=== PATIENT | male | born 1960 | race Caucasian/White ===

== ENCOUNTER 2018-05-31 03:24 | Observation (INO) | payer BC ==
[~2018-05-31] VITALS: Ht 167.6 cm; Wt 88.6 kg
[~2018-05-31 03:24] MED LIST: ATOR10 PO; Flomax0.4 MG PO; KETO10 PO; LANS30EC PO; NAPR220 PO; Percocet 5-3251 EACH PO; Zofran Odt8 MG SL
[2018-05-31 03:45] LABS: BASOPHILS ABSOLUTE AUTO 0.06 K/mm3 (0.00-0.23); BASOPHILS PERCENT AUTO 1 % (0-2); EOSINOPHILS ABSOLUTE AUTO 0.15 K/mm3 (0.00-0.68); EOSINOPHILS PERCENT AUTO 2 % (0-6); Hematocrit 46.9 % (37.0-53.0); Hemoglobin 15.7 g/dL (13.5-17.5); IMMATURE GRAN ABSOLUTE AUTO 0.02 K/mm3 (0.00-0.10); IMMATURE GRAN PERCENT AUTO 0 % (0-1); LYMPHOCYTES ABSOLUTE AUTO 3.35 K/mm3 (0.84-5.20); LYMPHOCYTES PERCENT AUTO 41 % (21-46); MONOCYTES ABSOLUTE AUTO 0.78 K/mm3 (0.16-1.47); MONOCYTES PERCENT AUTO 10 % (4-13); Mean Corpuscular HGB 30.8 pg (26.0-34.0); Mean Corpuscular HGB Conc 33.5 g/dL (31.5-36.5); Mean Corpuscular Volume 92 fL (80-100); Mean Platelet Volume 9.8 fL (9.1-12.4); NEUTROPHILS ABSOLUTE AUTO 3.78 K/mm3 (1.96-9.15); NEUTROPHILS PERCENT AUTO 47 % (41-73); Platelet Count 223 K/mm3 (150-400); RDW Coefficient Variation 12.1 % (11.7-14.2); RDW Standard Deviation 41.2 fL (35.1-46.3); White Blood Cell Count 8.14 K/mm3 (4.00-11.30)
[2018-05-31 04:05] LABS: Alanine Aminotransfer (ALT/SGP 30 U/L (12-78); Albumin/Globulin Ratio 1.2 (0.8-1.8); Alk Phos 80 U/L (50-136); Anion Gap 7 mmol/L (6-16); Aspartate Aminotrans (AST/SGOT 11 U/L (12-37); Bilirubin, Total 0.5 mg/dL (0.1-1.0); Blood Urea Nitrogen 12 mg/dL (8-24); Bun/Creatinine Ratio 15.1 (12.0-20.0); CO2, Blood 28 mmol/L (21-32); Calcium, Blood 8.3 mg/dL (8.5-10.1); Chloride, Blood 105 mmol/L (98-108); Globulin, Blood 3.4 g/dL (2.2-4.0); Glomerular Filtration Rate >60 (60-); Glucose, Blood 88 mg/dL (70-99); Potassium, Blood 3.4 mmol/L (3.5-5.5); Sodium, Blood 140 mmol/L (136-145); Total Protein, Blood 7.4 g/dL (6.4-8.2); Troponin I <0.015 ng/mL (0.000-0.040)
[2018-05-31 05:08] LABS: CHOL/HDL RATIO 5.1; Cholesterol 228 mg/dL (50-200); HDL Cholesterol 45 mg/dL (>39); LDL/HDL RATIO 3.3; Low Density Lipoprotein Chol 147 mg/dL (0-110); Triglycerides 180 mg/dL (30-160); Very Low Density Lipoprot Chol 36 mg/dL (6-32)
--- NOTE | 2018-05-31 07:01 | NUR ---
PCU NOC SHIFT SUMMARY PATIENT ARRIVED TO UNIT VIA GURNEY AND AMBULATED TO UNIT BED. PATIENT DENIED ANY CHEST PAIN OR DISCOMFORT AT THIS TIME. VSS ON ROOM AIR. REPORTED OFF TO EDWARD REA.
--- NOTE | 2018-05-31 16:24 | NUR ---
SHIFT SUMMARY PT AHS HAD NO ACUTE CHANGES THIS SHIFT, NO COMPLAINTS OF ANY KIND, PT BEDRESTING AT THIS TIME, WILL CONT TO MONITOR UNTIL REPORT GIVEN TO THOMPSON RN.
--- NOTE | 2018-05-31 23:06 | NUR ---
PM NOTE. ASSUMED CARE OF PT APROX 1900, PT IS A&Ox4 AND IND IN THE ROOM. PT WAS ADMITTED DUE TO CHEST PAIN AND HYPERTENSION. PT HAS DENIED CHEST PAIN SINCE ARRIVAL TO THIS UNIT. PT HAS HAD THE FIRST PART OF HIS STRESS TEST TODAY AND IS SCHEUDLED FOR THE SECOND PART TOMORROW, HE IS ABLE TO EAT HIS BREAKFAST IN THE AM BUT IS TO BE NPO BY 0830, PT IS AWARE OF THIS AND IS AGREEABLE. TELE INTACT, NSR IN THE 50'S-60'S, THE LOWEST THE PT'S HR HAS GONE IS 56. PT'S BP 153/99, NO EDEMA NOTED ON ASSESSMENT. L/S CLEAR T/O, PT IS ON RA W/SATS >90%. BT PRESENT AND HYPERACTIVE, ABD IS SOFT AND NONTENDER TO PALP. CALL LIGHT IN REACH, BED IS LOCKED AND LOW WILL CONTINUE TO MONITOR.
--- NOTE | 2018-05-31 23:22 | NUR ---
PT TRANSFER... PT IS TO BE TRANSFERED UP TO MEDICAL FLOOR, REPORT/SBAR WAS CALLED TO EDWARD DAS. ALL OF PT'S BELONGINGS WERE SENT WITH PT. PT HAS DENIED ANY CHEST PAIN/PRESSURE, SOB OR N/V. HIS VS HAVE BEEN STABLE.
--- NOTE | 2018-06-01 04:38 | NUR ---
SHIFT SUMMARY PT HAD NO ISSUES NOTED UPON ARRIVAL FROM PCU. PT HAS BEEN SLEEPING SINCE ARRIVING. PT DENIES ANY CX PAIN OR SOB. PT IS SLEEPING AND BREATHING EASY. CALL LIGHT IN REACH.
--- NOTE | 2018-06-01 19:03 | NUR ---
SHIFT SUMMARY- PT C/O HEADACHE. MEDS GIVEN PER EMAR. PT DENIES SOB. RESP E/U ON RA. NSR AT 63 PER PCU EDITOR SOUND. DENIES N/V. INDEPENDENT IN THE ROOM. STRESS TEST CAME BACK ABNORMAL. PT TO [facility] TRANSFER TO [place] WHEN AVAILABLE. ESTIMATED WAIT UP TO 24 HOURS. NO OTHER SIGNIFICANT CHANGES THIS SHIFT.
--- NOTE | 2018-06-02 14:50 | NUR ---
PATIENT TO [employer]LECT[employer]ICAL ENGINEER VIA W/C. BELONGINGS REMAIN IN ROOM UNTIL NEW ROOM IS ASSIGNED.
--- NOTE | 2018-06-02 16:00 | NUR ---
REPORT CALLED TO EDWARD MATTHEWS IN ICU
--- NOTE | 2018-06-02 16:30 | NUR ---
pt to transfer to [facility]
--- NOTE | 2018-06-02 16:30 | NUR ---
INITIAL ASSESSMENT PATIENT ARRIVED TO ROOM AT 1622. PATIENT ALERT AND ORIENTED X 4, AFEBRILE. PATIENT COMPLAINTS OF DULL MIDSTERNAL CHEST PAIN, 5/10. PATIENT STATES THAT THIS BEGAN AFTER HIS CATH BUT THAT THE PAIN IS MANAGEABLE AT THIS TIME. PATIENT DENIES ANY N/T. LUNGS CLEAR T/O. PATIENT SATTING WELL ON RA. PATIENT IN SR, HR IN THE 60S. BP STABLE. PULSES STRONG. NO EDEMA NOTED. GI WNL. WNL. PATIENT VOIDING YELLOW URINE INTO BEDSIDE URINAL. TR BAND IN PLACE TO R RADIAL SITE. 11 CC AIR INSTILLED. NO BLEEDING, BRUISING, OR HEMATOMA NOTED. BED LOW, CALL LIGHT IN REACH. PATIENT ORIENTED TO ROOM AND CALL SYSTEM. GF LET INTO ROOM. WILL CONTINUE TO MONITOR FREQUENTLY THROUGHOUT SHIFT.
--- NOTE | 2018-06-02 17:45 | NUR ---
1739: DR. SPANGLER CALLED PATIENT'S COMPLAINING OF INCREASED CHEST PAIN IN MIDSTERNAL AREA. PATIENT WENT FROM 5/10 DULL MIDSTERNAL CHEST PAIN TO COMPLAINING OF SHARP MIDSTERNAL CP WITH TIGHTENING IN CHEST AND SHOULDERS. EKG ORDERED. 1741: EKG PERFORMED. SHOWING NSR. DR. SPANGLER CALLED BACK AND INFORMED. ORDERED FOR PRN FENTANYL AND NITRO PASTE NOW.
--- NOTE | 2018-06-02 18:00 | NUR ---
1 CC AIR TAKEN OUT FROM TR BAND. SITE REMAINS WNL- NO BLEEDING, BRUISING, HEMATOMA NOTED. WILL CONTINUE TO MONITOR.
--- NOTE | 2018-06-02 18:19 | NUR ---
PATIENT'S PAIN REASSESSED. PATIENT STATES THAT PAIN IS 7/10 BUT "THAT IT IS STARTING TO GO AWAY". WILL CONTINUE TO MONITOR.
--- NOTE | 2018-06-02 18:44 | NUR ---
SHIFT SUMMARY PATIENT REMAINED ALERT AND ORIENTED X 4, AFEBRILE. PATIENT PAIN WENT FROM DULL TO SHARP WITH TIGHTNESS SPREADING TO BILAT SHOULDERS. DR. SPANGLER WAS NOTIFIED, EKG OBTAINED, PRN FENTANYL AND OT 1 INCH NITRO PASTE APPLIED. PATIENT HAS REMAINED SATTING WELL ON RA. PATIENT HAS BEEN IN SR, HR 60S TO 70S. BP STABLE. GI REMAINED WNL. PATIENT DID NOT HAVE BM THIS SINCE ARRIVAL. PATIENT IS USING URINAL BY SELF- URINE YELLOW IN COLOR. TR BAND REMAINS IN PLACE TO RIGHT WRIST. 10 CC AIR REMAINS INSTILLED IN TR BAND. NO BLEEDING, BRUISING, OR HEMATOMA NOTED. IV SALINE LOCKED. GF HAS BEEN IN ROOM. PATIENT WAITING FOR TRANSFER TO [facility]. BED LOW, CALL LIGHT IN REACH. WILL REMAIN FREQUENTLY ASSESSING UNTIL REPORT GIVEN TO ONCOMING MUSIC CATALOGUER NURSE SHORTLY.
--- NOTE | 2018-06-02 19:43 | NUR ---
PT TRANSFERED TO [facility] VIA AMBULANCE. PT IS A/O X4. CALM AND COOPERATIVE. STATES PAIN IN CHEST HAS GOTTEN BETTER AFTER FENTANYL AND NITRO PASTE THAT WAS GIVEN BY DAY RN. RATES IT 5/10 BUT STATES IT IS A DULL PRESSURE NOW INSTEAD OF SHARP PAIN. DECLINES ANY MORE FENTANYL BEFORE TRANSFER. LS CLEAR. HR NSR. TR BAND TO R RADIAL HAS AIR IN IT. THERE IS NO SIGN OF BLEEDING OR HEMATOMA. SYRINGE TO DEFLATE WAS SENT WITH PT AND AMB CREW AWARE. HAS ARM BOARD ON. REPORT WAS CALLED TO CHIRAG LEON AT [facility]. NO SIGN OF DISTRESS PT LEAVES THIS FACILITY.
== END 2018-06-02 19:35 | disposition short-term general hospital (02) ==
LOC: ER 03:24 → PCU 03:25 → MEDS 05:39 → PCU 05:42 → MEDS 23:28 → ICUW 06-02 16:04
PROVIDERS: Emergency Medicine; ADMIT Hospitalist
DX: I20.0 Unstable angina (principal); I16.0 Hypertensive urgency; I10 Essential (primary) hypertension; E78.5 Hyperlipidemia, unspecified; R94.39 Abnormal result of other cardiovascular function study; R82.5 Elevated urine levels of drugs, medicaments and biological substances; N20.0 Calculus of kidney; N40.0 Benign prostatic hyperplasia without lower urinary tract symptoms; E66.9 Obesity, unspecified; Z87.891 Personal history of nicotine dependence; Z68.30 Body mass index [BMI] 30.0-30.9, adult
CPT/HCPCS: 36415; 71046; 78452; 80053; 80061; 83036; 83690; 84484; 85025; 85347; 92920; 93005; 93010; 93017; 93308; 93454; 96374; 99152; 99153; 99285-25; A9500; C1725; C1769; C1887; C1894; J1644; J1650; J2250; J2720; J2785; J3010; J7030; Q9967